=== PATIENT | female | born 1955 | race Hispanic/Latino ===

== ENCOUNTER → 2019-02-07 | Day surgery (SDC) | payer BC ==
[~2019-02-07] MED LIST: ATORVASTATIN CA40 MG PO; BENICAR20 MG PO; FENTANYL CITRATE/PF 100MCG/2 ML INJ ONE; HYOSCYAMINE 0.125 MG TAB ONE; METFORMIN HCL500 MG PO; MIDAZOLAM HCL 2 MG/2 ML VIAL ONE; PROPOFOL IV EMULSION 10 MG/ML 50 ML VIAL ONE
[2019-02-07 11:29] VITALS: BP 107/66
--- NOTE | 2019-02-07 17:29 | Operative Report ---
DATE OF PROCEDURE: 02/07/2019 SURGEON: Christopher Calvin MD PROCEDURE: Colonoscopy with polypectomy and biopsies. INDICATIONS FOR COLONOSCOPY: Colorectal cancer screening. MEDICATIONS: The patient was done under MAC, please see anesthesiologist's note. PROCEDURE IN DETAIL: With the patient in the left lateral decubitus position, a flexible fiberoptic Olympus colonoscope was inserted into the rectum with ease and advanced all the way to the cecum. One polyp was removed per cold biopsy forceps from the cecum. The ileocecal valve was intubated and the scope was advanced into the terminal ileum. There was some patchy [id number] inflammatory changes noted in the terminal ileum and biopsies were obtained. The scope was then withdrawn back into the colon. It was then withdrawn slowly and one polyp was cold biopsied. An additional approximately 1 cm sessile polyp was removed per hot snare electrocautery and the site was hemoclipped x1. The transverse appeared to be within normal limits. One polyp was snared from the descending colon. The sigmoid and the rectum appeared to be within normal limits. The scope was then retroflexed into the distal rectum and small internal hemorrhoids were noted, none of which was actively bleeding. The scope was then straightened out, it was subsequently withdrawn, and the patient tolerated the procedure well. IMPRESSION: 1. Cecal polyp removed per cold biopsy forceps. 2. Ascending colon polyps x2, one hot snared and site hemoclipped and one polyp removed per cold biopsy forceps. 3. Descending colon polyp, hot snared. 4. Internal hemorrhoids, none actively bleeding. PLAN: Follow up histology. Initiate high-fiber, low-fat diet. Initiate high-fiber supplement. The patient might benefit from a followup colonoscopy in 3 years. Christopher Calvin MD [facility] – [place] /[id number] cc: Evelyne Stewart MD
== END | disposition home or self-care (01) ==
LOC: OR 06:27
PROVIDERS: ATTEND Internal Medicine Gastroenterology
DX: Z12.11 Encounter for screening for malignant neoplasm of colon (principal); D12.2 Benign neoplasm of ascending colon; D12.4 Benign neoplasm of descending colon; K64.8 Other hemorrhoids; I10 Essential (primary) hypertension; E11.9 Type 2 diabetes mellitus without complications; Z01.810 Encounter for preprocedural cardiovascular examination; Z79.84 Long term (current) use of oral hypoglycemic drugs
CPT/HCPCS: 36415; 45380; 45385; 82948; 84443; 93005; J2250; J2704; J3010; 45378; 45384